=== PATIENT | female | born 1995 | race Caucasian/White ===

== ENCOUNTER 2017-12-28 13:24 | Emergency (ER) | payer OTHER ==
[~2017-12-28] VITALS: Ht 170.2 cm; Wt 122.5 kg
[2017-12-28] MEDS ORDERED: IV NORMAL SALINE 1,000ML 1,000 ML IV ONE (14:00)
--- NOTE | 2017-12-28 14:00 | PHYS DOC ---
Adult General Chief Complaint Chief Complaint: LOWER EXT PAIN [facility] HPI Patient is a very pleasant 22-year-old female who is 20 weeks and presents for evaluation of intermittent right posterior calf and knee pain. She recently was seen in outside facility and they directed her to come to the emergency department for possible DVT. She has no history of DVT or PE. She has been having some intermittent dizziness but denies any currently. She denies chest pain or shortness of breath, abdominal or back pain, hemoptysis, cough, fevers or chills. She does have some intermittent nausea. She is alert and oriented 4, calm, and appears to be in no distress at this time. Review of Systems Review of Systems Constitutional: Denies fever or chills [] Eyes: Denies change in visual acuity, redness, or eye pain [] HENT: Denies nasal congestion or sore throat [] Respiratory: Denies cough or shortness of breath [] Cardiovascular: No additional information not addressed in HPI [] GI: Denies abdominal pain, nausea, vomiting, bloody stools or diarrhea [] : Denies dysuria or hematuria [] Musculoskeletal: Denies back pain or joint pain [] right posterior neck/calf pain Integument: Denies rash or skin lesions [] Neurologic: Denies headache, focal weakness or sensory changes [] Endocrine: Denies polyuria or polydipsia [] All other systems were reviewed and found to be within normal limits, except as documented in this note. Physical Exam Physical Exam Constitutional: Well developed, well nourished, no acute distress, non-toxic appearance. [] obese, calm HENT: Normocephalic, atraumatic, bilateral external ears normal, oropharynx moist, no oral exudates, nose normal. [] Eyes: PERRLA, EOMI, conjunctiva normal, no discharge. [] Neck: Normal range of motion, no tenderness, supple, no stridor. [] Cardiovascular:Heart rate regular rhythm, no murmur [] Lungs & Thorax: Bilateral breath sounds clear to auscultation [] Abdomen: Bowel sounds normal, soft, no tenderness, no masses, no pulsatile masses. [] Skin: Warm, dry, no erythema, no rash. [] Back: No tenderness, no CVA tenderness. [] Extremities: No tenderness, no cyanosis, no clubbing, ROM intact, no edema. [] mild right calf tenderness, no erythema or sign of infection, 1+ non-pitting edema b/l Neurologic: Alert and oriented X 3, normal motor function, normal sensory function, no focal deficits noted. [] Psychologic: Affect normal, judgement normal, mood normal. [] EKG EKG Normal sinus rhythm, rate of 69, no acute ischemic findings, normal axis, no STEMI, reviewed and interpreted by myself Radiology/Procedures Radiology/Procedures [address] [address] IMAGING REPORT Signed PATIENT: ASHLEY CORREA ACCOUNT: [id number] : 1995 LOCATION: ER AGE: 22 SEX: F EXAM STATUS: REG ER ORD. PHYSICIAN: MARICRUZ TERESA DO REASON: right calf pain, preg PROCEDURE: VENOUS LOWER EXTREMITY RIGHT EXAM: Right lower extremity venous Doppler sonogram. HISTORY: Pain. TECHNIQUE: Nieto scale and color Doppler sonographic evaluation of the right lower extremity veins with spectral waveform analysis was performed. FINDINGS: There is normal color flow, normal compressibility and there are normal spectral waveforms in the common femoral, superficial femoral, popliteal, posterior tibial and greater saphenous veins. IMPRESSION: No Doppler evidence of lower extremity venous thrombosis. Electronically signed by: Jill Villanueva MD (12/28/2017 2:30 PM) [facility] DICTATED AND SIGNED BY: JILL VILLANUEVA MD DATE: 12/28/17 [id number] CC: MARICRUZ TERESA DO; PCP,NO ~ Course & Med Decision Making Course & Med Decision Making Pertinent Labs and Imaging studies reviewed. (See chart for details) @1530 - Patient updated on lab and imaging results. She has no additional concerns or complaints at this time would like to go home. She is stable for discharge at this time. Advised the patient follow up with her [employer]. @1620 - UA is not a clean catch but does not appear to be an acute UTI. Dragon Disclaimer Dragon Disclaimer This electronic medical record was generated, in whole or in part, using a voice recognition dictation system. Departure Departure: Impression: Primary Impression: Feared condition not demonstrated Disposition: HOME, SELF-CARE Condition: STABLE Referrals: PCP,NO (PCP) Patient Instructions: ABCs of Additional Instructions: Follow-up with your [employer]OUTE DEL[employer]ERY [employer]IVER in the next 2-3 days. Return to the emergency department for new or worsening symptoms. MARICRUZ TERESA DO Dec 28, 2017 14:00
[2017-12-28 14:21] LABS: BASO # 0.1 x10^3/uL (0.0-0.2); BASO % 1 % (0-3); EOS % 0 % (0-3); HEMATOCRIT 35.2 % (36.0-47.0); HEMOGLOBIN 11.9 g/dL (12.0-15.5); LYMPH # 1.9 x10^3/uL (1.0-4.8); LYMPH % 20 % (24-48); MEAN CORPUSCULAR HEMOGLOBIN 30 pg (25-35); MEAN CORPUSCULAR HGB CONC 34 g/dL (31-37); MEAN CORPUSCULAR VOLUME 88 fL (79-100); MONO # 0.4 x10^3/uL (0.0-1.1); MONO % 4 % (0-9); NEUT # 7.3 x10^3uL (1.8-7.7); NEUT % 75 % (31-73); PLATELET COUNT 229 x10^3/uL (140-400); RED CELL DISTRIBUTION WIDTH 14.3 % (11.5-14.5); WHITE BLOOD COUNT 9.7 x10^3/uL (4.0-11.0)
[2017-12-28 14:34] LABS: ALBUMIN 2.4 g/dL (3.4-5.0); ALBUMIN/GLOBULIN RATIO 0.6 (1.0-1.7); CALCIUM 8.5 mg/dL (8.5-10.1); CREATININE 0.7 mg/dL (0.6-1.0); GFR 104.6; POTASSIUM 3.5 mmol/L (3.5-5.1); TOTAL BILIRUBIN 0.4 mg/dL (0.2-1.0); TOTAL PROTEIN 6.1 g/dL (6.4-8.2)
--- NOTE | 2017-12-28 14:34 | RAD ---
EXAM: Right lower extremity venous Doppler sonogram. HISTORY: Pain. TECHNIQUE: Nieto scale and color Doppler sonographic evaluation of the right lower extremity veins with spectral waveform analysis was performed. FINDINGS: There is normal color flow, normal compressibility and there are normal spectral waveforms in the common femoral, superficial femoral, popliteal, posterior tibial and greater saphenous veins. IMPRESSION: No Doppler evidence of lower extremity venous thrombosis. Electronically signed by: Jill Downs MD (12/28/2017 2:30 PM) [place] [id number]
[2017-12-28 16:04] LABS: BACTERIA,URINE MOD /HPF (0-FEW); BILIRUBIN,URINE NEG (NEG); CLARITY,URINE HAZY; COLOR,URINE YELLOW; GLUCOSE,URINE NEG (NEG); NITRITE,URINE NEG (NEG); SQUAMOUS EPITHELIAL CELL,UR FEW /LPF; UROBILINOGEN,URINE 0.2 mg/dL (0.2 mg/dL)
[2017-12-28 16:05] LABS: SPERM,URINE PRESENT /HPF
[2017-12-28 16:24] VITALS: BP 117/58
--- NOTE | 2017-12-28 18:51 | EKG ---
[address] [address] Test Date: 2017-12-28 Test Time: 14:44:30 Pat Name: ASHLEY CORREA Department: Room: Gender: F Color Checker: NUNO : 1995 Requested By: MARICRUZ TERESA Order Number: [id number] Reading MD: Rip Mehta Measurements Intervals [place] Rate: 69 P: 50 [place]: 136 QRS: 68 QRSD: 82 T: 22 QT: 386 QTc: 415 Interpretive Statements SINUS RHYTHM RI6.01 No previous ECG available for comparison Electronically Signed On 12-29-2017 10:51:38 CDT by Rip Mehta
== END 2017-12-28 16:30 | disposition home or self-care (01) ==
LOC: ER 13:24
DX: O26.892 Other specified pregnancy related conditions, second trimester (principal); Z71.1 Person with feared health complaint in whom no diagnosis is made; M25.561 Pain in right knee; Z3A.20 20 weeks gestation of pregnancy
CPT/HCPCS: 36415; 80053; 81001; 85025; 93005; 93971; 96360; 96361; 99285-25; J7030